=== PATIENT | female | born 1980 | race Caucasian/White ===

== ENCOUNTER 2016-08-31 22:42 | Emergency (ER) | payer OTHER ==
[~2016-08-31] VITALS: Ht 157.5 cm; Wt 92.5 kg
[2016-09-01 00:43] LABS: BASOPHIL % 0.4 % (0-2)
[2016-09-01 00:47] LABS: PLATELET COUNT 468 x10^3mcL (130-400); RED CELL DISTRIBUTION WIDTH 18.5 % (11.5-14.5)
[2016-09-01 00:49] LABS: CALCIUM 8.8 mg/dL (8.5-10.1); CARBON DIOXIDE 28.8 mmol/L (21-32); CHLORIDE SERUM 105 mmol/L (98-107); GFR1 > 60 mL/min; GLUCOSE SERUM 93 mg/dL (74-106); POTASSIUM SERUM 3.7 mmol/L (3.5-5.1); SODIUM SERUM 143 mmol/L (136-145)
[2016-09-01 02:31] VITALS: BP 132/72
== END 2016-09-01 02:31 | disposition home or self-care (01) ==
LOC: ED 22:42
PROVIDERS: Emergency Medicine
DX: R60.9 Edema, unspecified (principal); D50.9 Iron deficiency anemia, unspecified; N92.1 Excessive and frequent menstruation with irregular cycle
CPT/HCPCS: 82962; 83880; J1885; Q0092

== ENCOUNTER 2019-04-28 05:32 | Emergency (ER) | payer OTHER ==
[~2019-04-28] VITALS: Ht 154.9 cm; Wt 93.4 kg
[2019-04-28 05:43] VITALS: Ht 154.9 cm; Wt 93.4 kg
[2019-04-28 08:00] VITALS: BP 110/84
== END 2019-04-28 08:15 | disposition home or self-care (01) ==
LOC: ED 05:32
DX: J98.01 Acute bronchospasm (principal); B34.9 Viral infection, unspecified; F17.210 Nicotine dependence, cigarettes, uncomplicated
CPT/HCPCS: 99406; J7512; J7613; J7644; Q0092

== ENCOUNTER 2019-07-08 00:50 | Emergency (ER) | payer OTHER ==
[~2019-07-08] VITALS: Ht 157.5 cm; Wt 92.1 kg
[2019-07-08 00:53] VITALS: BP 131/88; Ht 157.5 cm; Wt 92.1 kg
== END 2019-07-08 01:42 | disposition home or self-care (01) ==
LOC: ED 00:50
DX: L02.412 Cutaneous abscess of left axilla (principal); M71.9 Bursopathy, unspecified
CPT/HCPCS: J2001

== ENCOUNTER 2019-07-10 03:14 | Emergency (ER) | payer OTHER ==
[~2019-07-10] VITALS: Ht 157.5 cm; Wt 90.5 kg
[2019-07-10 03:37] VITALS: Ht 157.5 cm; Wt 90.5 kg
[2019-07-10 04:59] VITALS: BP 129/82
== END 2019-07-10 04:59 | disposition home or self-care (01) ==
LOC: ED 03:14
DX: L02.414 Cutaneous abscess of left upper limb (principal); Z48.01 Encounter for change or removal of surgical wound dressing